=== PATIENT | female | born 1995 | race Caucasian/White ===

== ENCOUNTER 2018-01-29 20:04 | Emergency (ER) | payer MEDICAID ==
--- NOTE | 2018-01-29 22:37 | EDM.PDOC ---
ED HPI GENERAL MEDICAL PROBLEM - General Chief Complaint: General Stated Complaint: NEEDS STD TESTING Time Seen by Provider: 01/29/18 21:53 Source of Information: Reports: Patient History Limitations: Reports: No Limitations - History of Present Illness INITIAL COMMENTS - FREE TEXT/NARRATIVE: Patient is a 22-year-old female who presents to the ED wishing to be checked for STDs. Patient states she had sexual intercourse with a male last night. Unsure if condom was used or not. She did know the male but did not know his sexual history. She has no current symptoms including: Lesions, abnormal vaginal discharge, and/or foul smell. She denies being . She took plan b pills this a.m. she has no history of STDs herself. She was in a monogamous relationship up until last night. She states this was a mistake. - Related Data Allergies Allergy/AdvReac Type Severity Reaction Status Date / Time No Known Allergies Allergy Verified 01/29/18 20:28 Home Meds: Home Meds . [No Known Home Meds] 01/29/18 [History] Past Medical History - Past Health History Medical/Surgical History: Denies Medical/Surgical History Social & Family History - Tobacco Use Smoking Status *Q: Never Smoker - Caffeine Use Caffeine Use: Reports: Coffee, Energy Drinks, Soda - Recreational Drug Use Recreational Drug Type: Reports: Marijuana/Hashish Other Recreational Drug Type: lat used marijuana few weeks ago ED ROS GENERAL - Review of Systems Review Of Systems: ROS reveals no pertinent complaints other than HPI. ED EXAM, GENERAL - Physical Exam Exam: See Below Exam Limited By: No Limitations General Appearance: Alert, WD/WN, Anxious Ears: Hearing Grossly Normal Nose: Normal Inspection Throat/Mouth: Normal Voice, No Airway Compromise Neck: Normal Inspection, Supple Respiratory/Chest: No Respiratory Distress, No Accessory Muscle Use Neurological: Alert, Oriented, Normal Cognition Psychiatric: Normal Affect, Anxious Skin Exam: Warm, Dry, Normal Color Course - Vital Signs Last Recorded V/S: Last Vital Signs Temp 98.5 F 01/29/18 20:24 Pulse 101 H 01/29/18 20:24 Resp 20 01/29/18 20:24 BP 127/80 01/29/18 20:24 Pulse Ox 100 01/29/18 20:24 - Re-Assessments/Exams Free Text/Narrative Re-Assessment/Exam: After long discussion. Patient has opted to not undergo testing this evening for STDs. She will refrain from sexual intercourse from her current boyfriend and follow-up with [facility] this week or the following for testing. Patient is not currently having any outlying symptoms and agrees with plan. Departure - Departure Time of Disposition: 22:34 Disposition: Home, Self-Care 01 Condition: Good Clinical Impression: Concern about STD in female without diagnosis - Discharge Information Referrals: PCP,None [Primary Care Provider] - Forms: ED Department Discharge Additional Instructions: Please go to [facility] this week or the following week for STD testing. Refrain from sexual intercourse until testing completed. Continue to practice safe sex if choose to be sexually active. Please return to the E.D. for any new or worsening symptoms.
== END 2018-01-29 22:43 | disposition home or self-care (01) ==
LOC: JD.ED 20:04
DX: Z20.2 Contact with and (suspected) exposure to infections with a predominantly sexual mode of transmission (principal)
CPT/HCPCS: 99283

== ENCOUNTER 2019-01-21 12:50 | Emergency (ER) | payer BC, MEDICAID ==
--- NOTE | 2019-01-21 13:34 | EDM.PDOC ---
ED HPI GENERAL MEDICAL PROBLEM - General Chief Complaint: Respiratory Problem Stated Complaint: CONGESTION/STUFFY NOSE Time Seen by Provider: 01/21/19 13:00 Source of Information: Reports: Patient, RN Notes Reviewed - History of Present Illness INITIAL COMMENTS - FREE TEXT/NARRATIVE: 23-year-old female comes in with nasal and sinus congestion, sore throat and "just not feeling well". She does have history of seasonal allergies that often are quite bothersome this time of the year. She states she's been congested for over a month. Yesterday she awakened with sore throat and that continues to be very uncomfortable today. Hurts to swallow. Fever or chills. Not coughing. - Related Data Allergies Allergy/AdvReac Type Severity Reaction Status Date / Time No Known Allergies Allergy Verified 01/29/18 20:28 Home Meds: Home Meds . [No Known Home Meds] 01/29/18 [History] Past Medical History - Past Health History Medical/Surgical History: Denies Medical/Surgical History Social & Family History - Family History Family Medical History: Noncontributory - Tobacco Use Smoking Status *Q: Never Smoker - Caffeine Use Caffeine Use: Reports: Coffee, Energy Drinks, Soda ED ROS GENERAL - Review of Systems Review Of Systems: See Below Constitutional: Denies: Fever, Chills HEENT: Reports: Rhinitis, Sinus Problem, Throat Pain Respiratory: Denies: Wheezing, Cough Cardiovascular: Denies: Chest Pain GI/Abdominal: Denies: Vomiting Musculoskeletal: Reports: No Symptoms Skin: Reports: No Symptoms Neurological: Reports: No Symptoms ED EXAM, GENERAL - Physical Exam Exam: See Below General Appearance: Alert, Mild Distress Throat/Mouth: Inflammation (Throat is moderately inflamed, no exudate), Other ( There is nasal and sinus congestion) Head: No: Facial Swelling, Facial Tenderness Neck: Supple, Lymphadenopathy (L), Lymphadenopathy (R) (Mild) Respiratory/Chest: No Respiratory Distress ( mild), Lungs Clear. No: Rhonchi, Wheezing Cardiovascular: Regular Rate, Rhythm Skin Exam: Warm, Dry, Normal Color Course - Vital Signs Last Recorded V/S: Last Vital Signs Temp 97.8 F 01/21/19 12:59 Pulse 76 01/21/19 12:59 Resp 16 01/21/19 12:59 BP 110/72 01/21/19 12:59 Pulse Ox 100 01/21/19 12:59 - Orders/Labs/Meds Orders: Active Orders 24 hr Category Date Time Status CULTURE STREP A CONFIRMATION [RM] Stat Lab 01/21/19 13:27 Results STREP SCRN A RAPID W CULT CONF [RM] Stat Lab 01/21/19 13:27 Results - Re-Assessments/Exams Free Text/Narrative Re-Assessment/Exam: 01/21/19 14:37 Rapid strep did come back negative, discharge instructions as documented Departure - Departure Time of Disposition: 14:25 Disposition: Home, Self-Care 01 Condition: Fair Clinical Impression: Pharyngitis Qualifiers: Pharyngitis/tonsillitis etiology: unspecified etiology Qualified Code(s): J02.9 - Acute pharyngitis, unspecified - Discharge Information Instructions: Pharyngitis, [id number] Referrals: PCP,None [Primary Care Provider] - Forms: ED Department Discharge, ED Return to Work/School Form Additional Instructions: Rest, symptoms should start improving over the next day or 2, you may alternate tylenol and ibuprofen as needed, drink plenty of water to maintain hydration. Follow-up clinic if not much better within 2-3 days as expected. Return to ED as needed. - My Orders Last 24 Hours: My Active Orders 01/21/19 13:27 CULTURE STREP A CONFIRMATION [RM] Stat STREP SCRN A RAPID W CULT CONF [RM] Stat - Assessment/Plan Last 24 Hours: My Active Orders 01/21/19 13:27 CULTURE STREP A CONFIRMATION [RM] Stat STREP SCRN A RAPID W CULT CONF [RM] Stat
== END 2019-01-21 14:40 | disposition home or self-care (01) ==
LOC: JD.ED 12:50
DX: J02.9 Acute pharyngitis, unspecified (principal)
CPT/HCPCS: 87081; 87430; 99282; 99283

== ENCOUNTER 2019-04-30 07:38 | Emergency (ER) | payer BC ==
[2019-04-30] MEDS ORDERED: predniSONE 20 MG Tab PO ONE (08:04)
[2019-04-30] MEDS ORDERED: Famotidine 20 MG Tab PO ONE (08:04)
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
== END 2019-04-30 08:20 | disposition home or self-care (01) ==
LOC: JD.ED 07:38
DX: T78.40XA Allergy, unspecified, initial encounter (principal)
CPT/HCPCS: 99283; A9270